=== PATIENT | male | born 1980 | race African-American/Black ===

== ENCOUNTER 2024-06-02 04:42 | Emergency (ER) | payer MEDICAID ==
[~2024-06-02] VITALS: Ht 182.9 cm; Wt 112.0 kg
[~2024-06-02 04:42] MED LIST: AMLO5TAB88 PO; ASPI-1160 PO; ATOR20TA PO
[2024-06-02 04:50] VITALS: BP 161/106; PULSE 82; TEMP 97.8; O2SAT 98
[2024-06-02] MEDS ORDERED: PENI500T MT (05:13)
[2024-06-02] MEDS ORDERED: ACET-2708 MT (05:13)
[2024-06-02] MEDS: KETOROLAC 15MG/ML VIAL IM ONE (05:20)
[2024-06-02] MEDS: HYDROCODONE/ACETAMINOPHEN 5/325MG TABLET PO ONE (05:20)
[2024-06-02 05:40] VITALS: RESP 17
== END 2024-06-02 05:48 | disposition home or self-care (01) ==
LOC: ER 04:42
DX: K08.89 Other specified disorders of teeth and supporting structures (principal); I11.0 Hypertensive heart disease with heart failure; I50.9 Heart failure, unspecified; F15.10 Other stimulant abuse, uncomplicated; Z79.899 Other long term (current) drug therapy; Z79.82 Long term (current) use of aspirin
CPT/HCPCS: 99283; 96372; J1885